=== PATIENT | male | born 1970 | race Two or more races ===

== ENCOUNTER 2024-08-02 03:33 | Emergency (ER) | payer MEDICAID, SELFPAY ==
[2024-08-02 03:35] VITALS: BMI 29.7
[2024-08-02 03:42] VITALS: BP 164/78; PULSE 82; RESP 17; TEMP 36.4; O2SAT 98
--- NOTE | 2024-08-02 04:33 | EDRME_ITS ---
Rapid Medical Screening Exam [facility] Arrival date/time: 08/02/24 03:33 54M with an extensive history including asthma, DM, and CAD s/p CABG on Plavix presents to ED with dysuria/hematuria and R shoulder pain for 1 week. Patient was given muscle relaxers at PCP that didn't help much. Patient also has a cough. Chief Complaint: General Adult/Misc Complain Vital signs: Vital Signs Temperature 97.6 F 08/02/24 03:42 Pulse Rate 82 08/02/24 03:42 Respiratory Rate 17 08/02/24 03:42 Blood Pressure 164/78 H 08/02/24 03:42 Pulse Oximetry (%) 98 08/02/24 03:42 Oxygen Delivery Method Room Air 08/02/24 03:42
--- NOTE | 2024-08-02 04:47 | PC.NURSE ---
PT LEFT AFTER TALKING TO PROVIDER.
== END 2024-08-02 04:48 | disposition left against medical advice (07) ==
PROVIDERS: Emergency Provider Emergency Medicine
DX: M25.511 Pain in right shoulder (principal); R05.9 Cough, unspecified; Z53.29 Procedure and treatment not carried out because of patient's decision for other reasons
CPT/HCPCS: 99281

== ENCOUNTER 2025-01-03 07:31 | Emergency (ER) | payer OTHER, MEDICAID, SELFPAY ==
[2025-01-03 07:48] VITALS: BP 138/77; PULSE 76; RESP 18; TEMP 36.8; O2SAT 97; BMI 31.1
--- NOTE | 2025-01-03 08:21 | PD.EDURI ---
Upper Respiratory Inf. RME/HPI General Chief Complaint: Flu Like Symptoms Stated Complaint: COUGH, HEADACHE Time Seen by Provider: 01/03/25 07:40 Arrival date/time: 01/03/25 07:31 This is a 64-year-old male that comes in with complaints of cough, headache, and sore throat for the past week. Patient states that he has children that have influenza also pneumonia. Patient has a history of hyperlipidemia, diabetes, high blood pressure, and BPH. Related Data Home Medications ?Medication ?Instructions ?Recorded ?Confirmed atorvastatin 40 mg tablet 40 mg PO QDAY 07/14/19 05/14/24 clopidogrel 75 mg tablet 75 mg PO QDAY 11/21/19 05/14/24 albuterol sulfate 90 mcg/actuation 2 puff inhalation Q6HR PRN wheezing 06/28/20 05/14/24 aerosol inhaler (ProAir HFA) allopurinol 100 mg tablet 100 mg PO DAILY 12/31/21 05/14/24 lisinopril 5 mg tablet 5 mg PO DAILY 12/31/21 05/14/24 cholecalciferol (vitamin D3) 1,250 1 cap PO QWEEK 01/04/22 05/14/24 mcg (50,000 unit) capsule insulin glargine 100 unit/mL (3 30 unit subcut BID 01/04/22 05/14/24 mL) subcutaneous pen (Basaglar KwikPen U-100 Insulin) tizanidine 2 mg tablet 2 mg PO HS PRN diverticulitis 01/04/22 05/14/24 triamcinolone acetonide 0.1 % 1 applic topical PRN PRN Edema 01/04/22 05/14/24 topical cream gemfibrozil 600 mg tablet 600 tab PO Q OTHER DAY 04/21/22 05/14/24 insulin lispro 100 unit/mL See Rx Instructions .Route .COMPLEX 09/26/22 05/14/24 subcutaneous pen (Admelog SoloStar U-100 Insulin lispro) levofloxacin 500 mg tablet 500 mg PO QDAY 07/11/23 05/14/24 silodosin 8 mg capsule (Rapaflo) 8 mg PO QDAY 07/11/23 05/14/24 tamsulosin 0.4 mg capsule 0.4 mg PO QDAY 07/11/23 05/14/24 Previous Rx's ?Medication ?Instructions ?Recorded diphenhydramine HCl 25 mg capsule 25 mg PO TID PRN itching #30 caps 09/15/22 (Benadryl) famotidine 40 mg tablet 40 mg PO QDAY #10 tabs 09/15/22 metronidazole 500 mg tablet 500 mg PO BID #14 tabs 09/28/22 benzonatate 200 mg capsule 200 mg PO BID PRN cough #20 caps 12/20/22 hydrocodone 5 mg-acetaminophen 325 1 tab PO BID PRN pain #5 tabs 12/20/22 mg tablet ondansetron 4 mg disintegrating 4 mg PO Q8H PRN nausea and 04/12/24 tablet vomiting #10 tabs flash glucose sensor (FreeStyle #2 ea 05/26/24 Renu 2 Sensor kit) azithromycin 250 mg tablet See Rx Instructions PO .COMPLEX #6 01/03/25 tabs promethazine-DM 6.25 mg-15 mg/5 mL 5 ml PO Q6H PRN cough #240 mL 01/03/25 oral syrup Allergies Allergy/AdvReac Type Severity Reaction Status Date / Time No Known Allergies Allergy Verified 01/03/25 07:34 Course Orders Category Date Time Status Bedside COVID-19 Antigen Test NOW Care 01/03/25 08:08 Active Bedside Influenza A&B Antigen Test NOW Care 01/03/25 08:08 Completed Dexamethasone Inj [Decadron Inj] Med 01/03/25 08:10 Discontinued 10 mg PO X1 ONE Ibuprofen Tab [Motrin Tab] Med 01/03/25 08:08 Discontinued 800 mg PO X1 ONE Promethazine/Dextromethorph [Phenergan Dm Syrup] Med 01/03/25 08:08 Discontinued 5 ml PO X1 ONE Vital Signs Vital signs: Vital Signs Temperature 98.2 F 01/03/25 07:48 Pulse Rate 76 01/03/25 07:48 Respiratory Rate 18 01/03/25 07:48 Blood Pressure 138/77 H 01/03/25 07:48 Pulse Oximetry (%) 97 01/03/25 07:48 Upper Respiratory Infection MDM Narrative MDM Narrative:: Patient's COVID and flu were negative. Patient states the cough is better with the cough medicine. Patient states that he still coughing and still feels ill. Patient states he knows his body and knows when he is about to get pneumonia. Patient states he usually treated with antibiotics. Patient very insistent on antibiotic therapy. I did explain to patient at length that felt this is likely a viral illness. Patient verbalizes understanding. Will send patient home with a Z-Alessandro. Patient reports that he has an inhaler at home that he uses. I will also send patient home with ibuprofen and cough medicine. I explained to patient to follow-up with his primary provider in 1 to 2 days. Come back to the emergency room if symptoms change or worsen. Medications / Prescriptions Medication administrations:: Medication Administration History Discontinued Medications Dexamethasone Sodium Phosphate (Dexamethasone Sod Phos Inj 10 Mg/Ml Vial) 10 mg PO X1 ONE Stop: 01/03/25 08:11 Last Admin: 01/03/25 08:27 Dose: 10 mg Documented By: KEYON Comments: given po Ibuprofen (Ibuprofen Tab 400 Mg Tablet) 800 mg PO X1 ONE Stop: 01/03/25 08:09 Last Admin: 01/03/25 08:27 Dose: 800 mg Documented By: KEYON Promethazine HCl/Dextromethorphan (Promethazine/Dm Syrup 5 Ml Dose) 5 ml PO X1 ONE; Protocol Stop: 01/03/25 08:09 Last Admin: 01/03/25 08:27 Dose: 5 ml Documented By: KEYON Discharge Plan Plan Patient Disposition: HOME (Self Care) Patient condition on transfer: Stable Prescriptions/Referrals Prescriptions/Med Rec: New azithromycin 250 mg tablet See Rx Instructions .ROUTE .COMPLEX Qty: 6 0RF Rx Instructions: For 250 mg dose pack: take 500 mg today (day 1), then 250 mg for 4 days (days 2-5) promethazine-DM 6.25-15 mg/5 mL syrup 5 ml PO Q6H PRN (Reason: cough) Qty: 240 0RF No Action tamsulosin 0.4 mg capsule 0.4 mg PO QDAY levofloxacin 500 mg tablet 500 mg PO QDAY silodosin [Rapaflo] 8 mg capsule 8 mg PO QDAY Rx Instructions: must administer with a meal/food (DME) FreeStyle Renu 2 Sensor Kit See Rx Instructions .Route Qty: 2 3RF Rx Instructions: As directed to monitor blood sugar atorvastatin 40 mg Tablet 40 mg PO QDAY albuterol sulfate [ProAir HFA] 90 mcg/actuation HFA aerosol inhaler 2 puff inhalation Q6HR PRN (Reason: wheezing ) tizanidine 2 mg tablet 2 mg PO HS PRN (Reason: diverticulitis) Patient Comments: TAKE 1 TO 2 TABLETS BY MOUTH AT BEDTIME NEEDED FOR MUSCLE SPASM MAY CAUSE DROWSINESS, DIZZINESS triamcinolone acetonide 0.1 % cream 1 applic topical PRN PRN (Reason: Edema) Patient Comments: APPLY CREAM EXTERNALLY TO AFFECTED AREA TWICE DAILY FOR 15 DAYS Rx Instructions: APPLY CREAM EXTERNALLY TO AFFECTED AREA TWICE DAILY FOR 15 DAYS cholecalciferol (vitamin D3) 1,250 mcg (50,000 unit) capsule 1 cap PO QWEEK Patient Comments: TAKE 1 CAPSULE BY MOUTH ONCE A WEEK Rx Instructions: weekly every Saturday insulin glargine [Basaglar KwikPen U-100 Insulin] 100 unit/mL (3 mL) insulin pen 30 unit SUBCUT BID Patient Comments: INJECT 55 UNITS SUBCUTANEOUSLY TWICE DAILY clopidogrel 75 mg tablet 75 mg PO QDAY Patient Comments: TAKE 1 TABLET BY MOUTH ONCE DAILY lisinopril 5 mg tablet 5 mg PO DAILY Patient Comments: TAKE 1 TABLET BY MOUTH ONCE DAILY allopurinol 100 mg tablet 100 mg PO DAILY Patient Comments: TAKE 1 TABLET BY MOUTH ONCE DAILY FOR 30 DAYS famotidine 40 mg tablet 40 mg PO QDAY Qty: 10 0RF diphenhydramine HCl [Benadryl] 25 mg capsule 25 mg PO TID PRN (Reason: itching) Qty: 30 0RF insulin lispro [Admelog SoloStar U-100 Insulin] 100 unit/mL insulin pen See Rx Instructions .ROUTE .COMPLEX Patient Comments: INJECT 20 UNITS SUBCUTANEOUSLY THREE TIMES DAILY Rx Instructions: PER SLIDING SCALE metronidazole 500 mg tablet 500 mg PO BID Qty: 14 0RF ondansetron 4 mg tablet,disintegrating 4 mg PO Q8H PRN (Reason: nausea and vomiting) Qty: 10 0RF gemfibrozil 600 mg tablet 600 tab PO Q OTHER DAY Patient Comments: TAKE 1 TABLET BY MOUTH ONCE EVERY OTHER DAY STOP FENOFIBRATE benzonatate 200 mg capsule 200 mg PO BID PRN (Reason: cough) Qty: 20 0RF hydrocodone-acetaminophen 5-325 mg tablet 1 tab PO BID MDD 2 tabs PRN (Reason: pain) Qty: 5 0RF Referrals: Zaheer Oleary MD [Primary Care Provider] - In 1 week Problem List Clinical Impression: Bronchitis, Cough Patient/Caregiver Discharge Instructions Discharge Activity: activity as tolerated Education Materials: ED Upper Resp Infec Abx Tx Additional Instructions: Follow up with primary provider in 1-2 days. Come back to ED if symptoms change or worsen Print Language: Welsh Stand Alone Forms: Treasure Award Info., Patient Portal Info Letter PA/PANEL [employer] UP WORKER Supervising Physician PA/P[employer] WORKER Supervising Physician: slava
[2025-01-03] MEDS: IBUPROFEN TAB 400 MG TABLET 800 MG PO (08:27)
[2025-01-03] MEDS: DEXAMETHASONE SOD PHOS INJ 10 MG/ML VIAL PO (08:27)
[2025-01-03] MEDS: PROMETHAZINE/DM SYRUP 5 ML DOSE PO (08:27)
== END 2025-01-03 10:56 | disposition home or self-care (01) ==
PROVIDERS: Emergency Provider Emergency Medicine; PCP Family Medicine
DX: J40 Bronchitis, not specified as acute or chronic (principal)
CPT/HCPCS: 87400; 87811; 99283; J1100; A9270

== ENCOUNTER 2025-03-06 04:24 | Emergency (ER) | payer OTHER, MEDICAID, SELFPAY ==
[2025-03-06 04:25] VITALS: BMI 31.3
[2025-03-06 04:35] VITALS: BP 143/79; PULSE 86; RESP 18; TEMP 36.6; O2SAT 96
--- NOTE | 2025-03-06 04:57 | EDRME_ITS ---
Rapid Medical Screening Exam [facility] Arrival date/time: 03/06/25 04:24 54M with an extensive history including asthma, DM, and CAD s/p CABG presents to ED with 1 week of R flank pain and dysuria. Chief Complaint: Urogenital-Male Vital signs: Vital Signs Temperature 97.9 F 03/06/25 04:35 Pulse Rate 86 03/06/25 04:35 Respiratory Rate 18 03/06/25 04:35 Blood Pressure 143/79 H 03/06/25 04:35 Pulse Oximetry (%) 96 03/06/25 04:35 Oxygen Delivery Method Room Air 03/06/25 04:35
--- NOTE | 2025-03-06 04:57 | XR_ITS ---
Examination: CT abdomen and pelvis without contrast. Coronal 3-D reconstructions. Sagittal 2-D reconstructions. Date and time of exam:March 06 25, 0517 hours Comparison May 10, 2024 INDICATIONS: Onset flank pain beginning one week ago, history kidney stones May 10, 2024 CTDI: vol (mGy): 8.84. DLP: (mGycm): 569. Technique: Axial images of the abdomen have been obtained, 3 mm slice thickness Intravenous contrast material has not been administered. Low dose protocols were performed. One or more of the following dose reduction techniques were used; automated exposure control, adjustment of the mA and/or KV according to patient size, use of iterative reconstruction technique. Findings: Diffuse fatty infiltration throughout the liver, no focal liver or splenic lesions. Absent gallbladder. No pancreatic or adrenal mass 6 mm 1 mm left renal calculi 5 mm lower pole right renal calculus Mild right hydronephrosis, 6 mm right ureteropelvic junction calculus 28 mm fat-containing umbilical hernia Normal appendix No bowel obstruction Sigmoid colon sutures Thickened urinary bladder wall with pericystic inflammatory change No prostatomegaly IMPRESSION: Mild right hydronephrosis, 6 mm right ureteropelvic junction calculus Severe cystitis pattern
--- NOTE | 2025-03-06 05:45 | PRELIM_ITS ---
CT scan of the abdomen and pelvis without intravenous contrast (axial sections with sagittal and coronal reformats) March 06, 2025 0517 hours Clinical History: R Flank pain Comparison: May 10, 2024. Findings: There are multiple nodules in the bilateral lung bases , largest measuring 5 mm in the right (axial image 7/312). Fatty infiltration of the liver is noted. The gallbladder is surgically absent. There is a 6 mm obstructing calculus at the right ureteropelvic junction (axial images 123/312) causing mild hydronephrosis and periureteric/perinephric fat stranding. Nonobstructing bilateral renal calculi are seen. The pancreas, spleen and adrenals are unremarkable on this noncontrast study. A moderate amount of fecal material is present in the colon. No evidence of bowel obstruction. The appendix is within normal limits. There is no mesenteric or retroperitoneal adenopathy. The urinary bladder is incompletely distended at the time of the examination and appears mildly thick walled. There is no free fluid or free air. Degenerative changes are identified in the spine. A small fat-containing umbilical hernia is present. Impression: A 6 mm obstructing calculus at the right ureteropelvic junction causing mild hydronephrosis. Incompletely distended and mildly thick-walled urinary bladder. In the appropriate clinical setting, the possibility of cystitis cannot be excluded. Other findings as described above. Report Electronically Signed By: Ilya Franco 03/06/2025 5:44:25 AM [EST]
[2025-03-06 06:27] LABS: Basophils # (Auto) 0.0 Thou/mm3 (0.0-0.2); Basophils % (Auto) 0 % (0-2.5); Eosinophils # (Auto) 0.3 Thou/mm3 (0.0-0.5); Eosinophils % (Auto) 3 % (0-10); Hematocrit 43.3 % (41.0-53.0); Hemoglobin 14.9 g/dL (13.5-16.0); Immature Granulocytes Auto 0.07 Thou/mm3 (0.00-0.00); Lymphocytes # (Auto) 1.7 Thou/mm3 (1.0-4.8); Lymphocytes % (Auto) 18 % (10-50); Mean Corpuscular HGB Conc 34.4 g/dl (31.0-37.0); Mean Corpuscular Hemoglobin 30.8 pg (25.0-35.0); Mean Corpuscular Volume 90 fL (80-100); Monocytes # (Auto) 0.7 Thou/mm3 (0.0-0.8); Monocytes % (Auto) 8 % (0-12); Neutrophils # (Auto) 6.5 Thou/mm3 (1.8-7.7); Neutrophils % (Auto) 70 % (37-80); Nucleated Red Blood Cell # 0.00 Thou/mm3 (0.00-0.00); Nucleated Red Blood Cell % 0 /100 WBC (0); Platelet Count 181 Thou/mm3 (140-440); RDW Standard Deviation 41.3 fL (35.1-43.9); Red Blood Count 4.84 Miln/mm3 (4.50-5.90); White Blood Count 9.4 Thou/mm3 (3.8-10.6)
[2025-03-06 06:48] LABS: Alanine Aminotransferase 60 U/L (10-49); Albumin, Serum 4.3 gm/dL (3.5-5.0); Albumin/Globulin Ratio 1.8 (1.2-2.2); Alkaline Phosphatase 113 U/L (46-116); Anion Gap 11 (7-16); Aspartate Amino Transferase 37 U/L (0-34); BUN/Creatinine Ratio 13 Ratio (12-20); Bilirubin,Total 1.2 mg/dL (0.3-1.2); Blood Urea Nitrogen 16 mg/dL (9-23); Calcium 8.8 mg/dL (8.3-10.6); Calcium (Corrected) 8.8 mg/dL (8.5-10.1); Carbon Dioxide 19.5 mMol/L (20.0-31.0); Chloride 109 mMol/L (98-107); Creatinine (Component) 1.2 mg/dL (0.6-1.3); Estimated Creatinine Clearance 74.7 mL/min (>60); Globulin 2.4 gm/dL (2.3-3.5); Glucose 224 mg/dL (74-106); Lipase 46 U/L (12-53); Osmolality,Calculated 285 (275-295); Potassium 4.2 mMol/L (3.4-5.1); Sodium 139 mMol/L (136-145); Total Protein 6.7 gm/dL (5.7-8.2); eGFR > 60 See Note
[2025-03-06 06:51] LABS: Collection Type, Urine Clean Catch; Squamous Epithelial Cell,Urine 0 /hpf (0-5)
[2025-03-06 07:01] VITALS: BP 136/95; PULSE 78; RESP 19; TEMP 36.6; O2SAT 97
[2025-03-06 07:16] LABS: Bilirubin,Urine Negative (Negative); Blood,Urine 1+ (Negative); Color,Urine Yellow (Lt Yel-Yel); Glucose, Urine 1+ (Negative); Ketones,Urine Negative (Negative); Leukocyte Esterase,Urine Positive (Negative); Nitrite,Urine Negative (Negative); PH,Urine 6.0 (5.0-7.0); Protein,Urine 1+ (Neg - Trace); RBC,Urine 27 /hpf (0-3); Specific Gravity,Urine 1.017 (1.001-1.035); Transitional Epi Cells,Urine 1 /hpf (0-5); Urobilinogen,Urine Negative mg/dL (0.0-1.0); WBC,Urine 1650 /hpf (0-5)
[2025-03-06 07:27] LABS: Clarity,Urine Turbid (Clear/Hazy)
--- NOTE | 2025-03-06 07:59 | XR_ITS ---
Examination: AP chest single view TECHNIQUE: AP portable semiupright chest single view Date and time: March 06, 2025, 0821 hours Comparison December 20, 2022 INDICATION: Coughing and shortness of breath chest pain beginning today. FINDINGS: Mild prominence left ventricle. CABG. No pneumonia or pulmonary edema. IMPRESSION: No active disease.
[2025-03-06 08:14] VITALS: BP 157/87; PULSE 72; RESP 18; TEMP 36.6; O2SAT 98
--- NOTE | 2025-03-06 08:14 | PD.EDMALE ---
ED Male Genitalurinary RME/HPI General Chief complaint: Urogenital-Male Stated complaint: RT FLANK PAIN Time Seen by Provider: 03/06/25 08:20 Arrival date/time: 03/06/25 04:24 Limitations: no limitations RME / HPI RME / HPI Narrative: 03/06/25 04:24 54M with an extensive history including asthma, DM, and CAD s/p CABG presents to ED with 1 week of R flank pain and dysuria. DR. JUAN MAIN ED EVALUATION: 54-year-old male with past medical history of insulin-dependent diabetes mellitus complicated by gastroparesis, coronary artery disease on Plavix s/p 5-vessel CABG, recurrent UTIs, nephrolithiasis, left foot osteomyelitis s/p amputation of the left fourth toe, and right below-knee amputation presents to the Emergency Department with complaint of right flank pain radiating to the lower back and associated dysuria. He reports a history of frequent UTIs and is currently experiencing symptoms consistent with another episode. Denies tobacco, alcohol, or drug use. Related Data Home Medications ?Medication ?Instructions ?Recorded ?Confirmed atorvastatin 40 mg tablet 40 mg PO QDAY 07/14/19 05/14/24 clopidogrel 75 mg tablet 75 mg PO QDAY 11/21/19 05/14/24 albuterol sulfate 90 mcg/actuation 2 puff inhalation Q6HR PRN wheezing 06/28/20 05/14/24 aerosol inhaler (ProAir HFA) allopurinol 100 mg tablet 100 mg PO DAILY 12/31/21 05/14/24 lisinopril 5 mg tablet 5 mg PO DAILY 12/31/21 05/14/24 cholecalciferol (vitamin D3) 1,250 1 cap PO QWEEK 01/04/22 05/14/24 mcg (50,000 unit) capsule insulin glargine 100 unit/mL (3 30 unit subcut BID 01/04/22 05/14/24 mL) subcutaneous pen (Basaglar KwikPen U-100 Insulin) tizanidine 2 mg tablet 2 mg PO HS PRN diverticulitis 01/04/22 05/14/24 triamcinolone acetonide 0.1 % 1 applic topical PRN PRN Edema 01/04/22 05/14/24 topical cream gemfibrozil 600 mg tablet 600 tab PO Q OTHER DAY 04/21/22 05/14/24 insulin lispro 100 unit/mL See Rx Instructions .Route .COMPLEX 09/26/22 05/14/24 subcutaneous pen (Admelog SoloStar U-100 Insulin lispro) levofloxacin 500 mg tablet 500 mg PO QDAY 07/11/23 05/14/24 silodosin 8 mg capsule (Rapaflo) 8 mg PO QDAY 07/11/23 05/14/24 tamsulosin 0.4 mg capsule 0.4 mg PO QDAY 07/11/23 05/14/24 Previous Rx's ?Medication ?Instructions ?Recorded diphenhydramine HCl 25 mg capsule 25 mg PO TID PRN itching #30 caps 09/15/22 (Benadryl) famotidine 40 mg tablet 40 mg PO QDAY #10 tabs 09/15/22 metronidazole 500 mg tablet 500 mg PO BID #14 tabs 09/28/22 benzonatate 200 mg capsule 200 mg PO BID PRN cough #20 caps 12/20/22 hydrocodone 5 mg-acetaminophen 325 1 tab PO BID PRN pain #5 tabs 12/20/22 mg tablet ondansetron 4 mg disintegrating 4 mg PO Q8H PRN nausea and 04/12/24 tablet vomiting #10 tabs flash glucose sensor (FreeStyle #2 ea 05/26/24 Renu 2 Sensor kit) azithromycin 250 mg tablet See Rx Instructions PO .COMPLEX #6 01/03/25 tabs promethazine-DM 6.25 mg-15 mg/5 mL 5 ml PO Q6H PRN cough #240 mL 01/03/25 oral syrup ciprofloxacin HCl 500 mg tablet 500 mg PO BID uti #20 tabs 03/06/25 hydrocodone 5 mg-acetaminophen 325 1 tab PO Q6H PRN pain #14 tabs 03/06/25 mg tablet Allergies Allergy/AdvReac Type Severity Reaction Status Date / Time No Known Allergies Allergy Verified 01/03/25 07:34 Review of Systems Review of Systems Systems Reviewed: All systems reviewed, normal except as documented Past Medical History Past Medical History CARDIAC: Positive Cardiac Disorders, Myocardial Infarction, Coronary Artery Disease, Atherosclerotic Heart Disease, Peripheral Vascular Disease, Hypercholesterolemia, Hypertension and Hypotension RESPIRATORY: Positive Asthma GASTROINTESTINAL: Positive Gastrointestinal Disorders, Pancreatitis, Gall Bladder Disease, Diverticulitis, Diverticulosis and Crohn's Disease GENITOURINARY: Positive Genitourinary Disorders, Kidney Stones and Benign Prostatic Hyperplasia MUSCULOSKELETAL: Positive Musculoskeletal Disorders, Arthritis, Degenerative Disk Disease and Osteomyelitis ENDOCRINE: Positive Endocrine Disorders and Diabetes Mellitus Type 2 PSYCHO/SOCIAL: Positive Depression OTHER HISTORY: Positive Hospitalization, Blood Transfusions and Chicken Pox Family History FAMILY HISTORY: Positive Family Respiratory Disorders, Family Cardiac Disorders, Family Gastrointestinal Problems, Family Cancer and Family Surgery Surgical History SURGICAL: Positive Open Heart Surgery, Coronary Artery Bypass Graft, Coronary Stent, Angiogram, Eye Surgery, Abdominal Surgery, Bowel Surgery and Amputation Social History SMOKING STATUS: Never smoker SECOND HAND EXPOSURE: No SUBSTANCE USE: does not use ALCOHOL: Never ED Exam General Limitations: Present no limitations General appearance: Present alert and in no apparent distress Head Head exam: Present atraumatic, normocephalic and normal inspection Eye Eye exam: Present normal appearance, PERRL and EOMI ENT ENT exam: Present normal exam, normal oropharynx and mucous membranes moist Neck Neck exam: Present normal inspection, full ROM and trachea midline Chest Chest inspection: Present normal inspection and symmetric chest wall rise Respiratory Respiratory exam: Present normal lung sounds bilaterally Cardiovascular Cardiovascular exam: Present regular rate, normal rhythm and normal heart sounds Abdominal Exam Abdominal exam: Present soft and normal bowel sounds Extremities Exam Extremities exam: Present full ROM and other (Right BKA) Back Exam Back exam: Present full ROM and CVA tenderness (R) (+/-); Absent CVA tenderness (L) Neurological Exam Neurological exam: Present alert, oriented X3 and CN II-XII intact Psychiatric Psychiatric exam: Present normal affect and normal mood Skin Skin exam: Present warm, dry, intact and normal color Course Quality Measures none Orders Category Date Time Status Double Cut Off Saw Operator NOW Care 03/06/25 07:59 Completed Continuous Pulse Oximetry NOW Care 03/06/25 07:59 Completed Insert IV NOW Care 03/06/25 07:[address] abdomen pelvis wo con Stat Exams 03/06/25 04:57 Completed XR chest 1V portable Stat Exams 03/06/25 07:59 Completed Blood Culture (Lab) Stat Lab 03/06/25 09:22 Received CBC Stat Lab 03/06/25 06:12 Completed CMP [Comprehensive Metabolic Panel] Stat Lab 03/06/25 06:12 Completed Lactic Acid [Lactate (Lactic Acid)] Stat Lab 03/06/25 09:32 Completed Lipase Stat Lab 03/06/25 06:12 Completed UA [Urinalysis] Stat Lab 03/06/25 06:20 Completed Urine Culture Stat Lab 03/06/25 06:20 Received HYDROcodone*/APAP 5/325 [[place]enton 5/325] Med 03/06/25 04:57 Discontinued 1 tab PO X1 ONE Morphine Inj Med 03/06/25 08:24 Discontinued 4 mg IVP X1 ONE Ondansetron Inj [Zofran Inj] Med 03/06/25 08:24 Discontinued 4 mg IVP X1 ONE Sodium Chloride 0.9% 1000 ml [Ns] 1,000 ml Med 03/06/25 07:59 Discontinued IV 999 mls/hr cefTRIAXone [Rocephin] 2 gm Med 03/06/25 07:59 Discontinued SODIUM CHLORIDE 0.9% (Popper) [Ns 0.9% (P)] 50 ml IV X1 Vital Signs Vital signs: Vital Signs Temperature 97.9 F 03/06/25 04:35 Pulse Rate 86 03/06/25 04:35 Respiratory Rate 18 03/06/25 04:35 Blood Pressure 143/79 H 03/06/25 04:35 Pulse Oximetry (%) 96 03/06/25 04:35 Oxygen Delivery Method Room Air 03/06/25 04:35 Urogenital - Male MDM Narrative MDM Narrative:: I, Leslie Collins am scribing for and in the presence of Dr. Juan. Patient data External records reviewed:: [facility] previous records Clinical information provided by:: patient Social determinants that could affect healthcare access:: none Patient has the following chronic illnesses:: Insulin-dependent diabetes mellitus complicated by gastroparesis, coronary artery disease on Plavix s/p 5-vessel CABG, recurrent UTIs, nephrolithiasis, left foot osteomyelitis s/p amputation of the left fourth toe, and right below-knee amputation. Frequent UTIs. How is presenting disease/condition affected by chronic disease/condition?: exacerbated by Evaluation data The following diagnostics were reviewed and interpreted by me:: lab results and radiology exam(s) Lab and/or radiology exams considered but not ordered:: none Interpretation Summary: Procedure(s): CT abdomen pelvis wo con Accession Number(s): [id number] cc: Zaheer Oleary MD; Mayito Vargas MD; Joss Arias PA-C~ Examination: CT abdomen and pelvis without contrast. Coronal 3-D reconstructions. Sagittal 2-D reconstructions. Date and time of exam:March 06 25, 0517 hours Comparison May 10, 2024 INDICATIONS: Onset flank pain beginning one week ago, history kidney stones May 10, 2024 CTDI: vol (mGy): 8.84. DLP: (mGycm): 569. Technique: Axial images of the abdomen have been obtained, 3 mm slice thickness Intravenous contrast material has not been administered. Low dose protocols were performed. One or more of the following dose reduction techniques were used; automated exposure control, adjustment of the mA and/or KV according to patient size, use of iterative reconstruction technique. Findings: Diffuse fatty infiltration throughout the liver, no focal liver or splenic lesions. Absent gallbladder. No pancreatic or adrenal mass 6 mm 1 mm left renal calculi 5 mm lower pole right renal calculus Mild right hydronephrosis, 6 mm right ureteropelvic junction calculus 28 mm fat-containing umbilical hernia Normal appendix No bowel obstruction Sigmoid colon sutures Thickened urinary bladder wall with pericystic inflammatory change No prostatomegaly IMPRESSION: Mild right hydronephrosis, 6 mm right ureteropelvic junction calculus Severe cystitis pattern Dictated By: Mayito Vargas MD Procedure(s): XR chest 1V portable Accession Number(s): [id number] cc: Jamil Juan MD; Zaheer Oleary MD; Mayito Vargas MD~ Examination: AP chest single view TECHNIQUE: AP portable semiupright chest single view Date and time: March 06, 2025, 0821 hours Comparison December 20, 2022 INDICATION: Coughing and shortness of breath chest pain beginning today. FINDINGS: Mild prominence left ventricle. CABG. No pneumonia or pulmonary edema. IMPRESSION: No active disease. Dictated By: Mayito Vargas MD Medications / Prescriptions Medications or Prescriptions considered but not ordered:: none Medication administrations:: Medication Administration History Discontinued Medications Hydrocodone Bitart/Acetaminophen (Hydrocodone/Apap 5/325 Tablet) 1 tab PO X1 ONE Stop: 03/06/25 04:58 Last Admin: 03/06/25 08:36 Dose: 1 tab Documented By: KEYON Sodium Chloride (Ns) 1,000 mls @ 999 mls/hr IV .Q1H1M ONE Stop: 03/06/25 08:59 Last Infusion: 03/06/25 10:20 Dose: Infused Documented By: Admin: 03/06/25 08:54 Dose: 999 mls/hr Documented By: KEYON Ceftriaxone Sodium 2 gm/ (Sodium Chloride) 50 mls @ 100 mls/hr IV X1 ONE Stop: 03/06/25 08:28 Last Infusion: 03/06/25 10:18 Dose: Infused Documented By: Admin: 03/06/25 08:54 Dose: 100 mls/hr Documented By: KEYON Morphine Sulfate (Morphine Sulf Inj 10 Mg/Ml Vial) 4 mg IVP X1 ONE Stop: 03/06/25 08:25 Last Admin: 03/06/25 09:05 Dose: 4 mg Documented By: TJ Ondansetron HCl (Ondansetron Inj 2 Mg/Ml Inj 2 Ml) 4 mg IVP X1 ONE; Protocol Stop: 03/06/25 08:25 Last Admin: 03/06/25 09:00 Dose: 4 mg Documented By: TJ see above Consultations Consultation(s) initiated? (list below): No Diagnosis Urogenital Male Differential Diagnosis: other (pyelonephritis, obstructive uropathy due to nephrolithiasis, prostatitis) Most likely diagnosis given after review of the tests above:: 6 mm right ureteropelvic junction calculus Mild right hydronephrosis Admission Indicated Admission indicated?: not indicated Admission Request Was there a request for admission?: No Disposition Plan Disposition Plan: Discharge Discharge Attestation Discharge Attestation: The patient and all family members were given an opportunity to ask questions and understood the discharge instructions. Discharge instructions specifically effects, indications for sooner follow up or return to the emergency department, and the expected course of current diagnosis. Patient condition: Stable Discharge Plan Plan Patient Disposition: HOME (Self Care) Patient condition on transfer: Stable Prescriptions/Referrals Prescriptions/Med Rec: New ciprofloxacin HCl 500 mg tablet 500 mg PO BID MDD 2 Qty: 20 0RF hydrocodone-acetaminophen 5-325 mg tablet 1 tab PO Q6H MDD 4 PRN (Reason: pain) Qty: 14 0RF No Action tamsulosin 0.4 mg capsule 0.4 mg PO QDAY levofloxacin 500 mg tablet 500 mg PO QDAY silodosin [Rapaflo] 8 mg capsule 8 mg PO QDAY Rx Instructions: must administer with a meal/food (DME) FreeStyle Renu 2 Sensor Kit See Rx Instructions .Route Qty: 2 3RF Rx Instructions: As directed to monitor blood sugar atorvastatin 40 mg Tablet 40 mg PO QDAY albuterol sulfate [ProAir HFA] 90 mcg/actuation HFA aerosol inhaler 2 puff inhalation Q6HR PRN (Reason: wheezing ) tizanidine 2 mg tablet 2 mg PO HS PRN (Reason: diverticulitis) Patient Comments: TAKE 1 TO 2 TABLETS BY MOUTH AT BEDTIME NEEDED FOR MUSCLE SPASM MAY CAUSE DROWSINESS, DIZZINESS triamcinolone acetonide 0.1 % cream 1 applic topical PRN PRN (Reason: Edema) Patient Comments: APPLY CREAM EXTERNALLY TO AFFECTED AREA TWICE DAILY FOR 15 DAYS Rx Instructions: APPLY CREAM EXTERNALLY TO AFFECTED AREA TWICE DAILY FOR 15 DAYS cholecalciferol (vitamin D3) 1,250 mcg (50,000 unit) capsule 1 cap PO QWEEK Patient Comments: TAKE 1 CAPSULE BY MOUTH ONCE A WEEK Rx Instructions: weekly every Saturday insulin glargine [Basaglar KwikPen U-100 Insulin] 100 unit/mL (3 mL) insulin pen 30 unit SUBCUT BID Patient Comments: INJECT 55 UNITS SUBCUTANEOUSLY TWICE DAILY clopidogrel 75 mg tablet 75 mg PO QDAY Patient Comments: TAKE 1 TABLET BY MOUTH ONCE DAILY lisinopril 5 mg tablet 5 mg PO DAILY Patient Comments: TAKE 1 TABLET BY MOUTH ONCE DAILY allopurinol 100 mg tablet 100 mg PO DAILY Patient Comments: TAKE 1 TABLET BY MOUTH ONCE DAILY FOR 30 DAYS famotidine 40 mg tablet 40 mg PO QDAY Qty: 10 0RF diphenhydramine HCl [Benadryl] 25 mg capsule 25 mg PO TID PRN (Reason: itching) Qty: 30 0RF insulin lispro [Admelog SoloStar U-100 Insulin] 100 unit/mL insulin pen See Rx Instructions .ROUTE .COMPLEX Patient Comments: INJECT 20 UNITS SUBCUTANEOUSLY THREE TIMES DAILY Rx Instructions: PER SLIDING SCALE metronidazole 500 mg tablet 500 mg PO BID Qty: 14 0RF ondansetron 4 mg tablet,disintegrating 4 mg PO Q8H PRN (Reason: nausea and vomiting) Qty: 10 0RF gemfibrozil 600 mg tablet 600 tab PO Q OTHER DAY Patient Comments: TAKE 1 TABLET BY MOUTH ONCE EVERY OTHER DAY STOP FENOFIBRATE benzonatate 200 mg capsule 200 mg PO BID PRN (Reason: cough) Qty: 20 0RF hydrocodone-acetaminophen 5-325 mg tablet 1 tab PO BID MDD 2 tabs PRN (Reason: pain) Qty: 5 0RF azithromycin 250 mg tablet See Rx Instructions .ROUTE .COMPLEX Qty: 6 0RF Rx Instructions: For 250 mg dose pack: take 500 mg today (day 1), then 250 mg for 4 days (days 2-5) promethazine-DM 6.25-15 mg/5 mL syrup 5 ml PO Q6H PRN (Reason: cough) Qty: 240 0RF Referrals: Zaheer Oleary MD [Primary Care Provider] - In 1 week Problem List Clinical Impression: Calculus of right kidney, Hydronephrosis, right Impression comment: 6 mm right ureteropelvic junction calculus Patient/Caregiver Discharge Instructions Diet Instructions: Please drink a lot of fluids. Additional Instructions: Please drink a lot of fluids. Please follow-up with your primary care physician within 2-3 days. Return to the Emergency Department as needed. Print Language: Swedish Stand Alone Forms: Treasure Award Info., Patient Portal Info Letter
[2025-03-06] MEDS: HYDROcodone/APAP 5/325 TABLET 1 TAB PO (08:36)
[2025-03-06] MEDS: SODIUM CHLORIDE 0.9% 1000 ML 1,000 ML 999 ML IV (08:54)
[2025-03-06] MEDS: cefTRIAXone 2 GM in SODIUM CHLORIDE 0.9% (Popper) 50 ML IV (08:54)
[2025-03-06] MEDS: ONDANSETRON INJ 2 MG/ML INJ 2 ML 4 MG IVP (09:00)
[2025-03-06] MEDS: MORPHINE SULF INJ 10 MG/ML VIAL 4 MG IVP (09:05)
[2025-03-06 09:39] LABS: Lactate (Lactic Acid) 1.7 mMol/L (0.4-2.0)
== END 2025-03-06 10:46 | disposition home or self-care (01) ==
PROVIDERS: Physician Assistant; Emergency Provider Family Medicine; PCP Family Medicine
DX: N13.2 Hydronephrosis with renal and ureteral calculous obstruction (principal); R06.02 Shortness of breath; R07.9 Chest pain, unspecified; R05.9 Cough, unspecified
CPT/HCPCS: 36415; 71045; 74176; 80053; 81001; 83605; 83690; 85025; 87040; 87077; 87086; 87186; 96365; 96375; 99283; J0696; J2270; J2405; J7030; J7050; A9270

== ENCOUNTER 2025-05-18 10:15 | Day surgery (SDC) | payer OTHER, MEDICAID, SELFPAY ==
[2025-05-14 16:48] VITALS: BMI 29.8
--- NOTE | 2025-05-17 08:58 | EKG_ITS ---
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: JENNIFER : 1970 Requested By: Celina Wylie Order Number: [id number] Reading MD: Celina Wylie Measurements Intervals [place] Rate: 79 P: 33 NV: 169 QRS: 2 QRSD: 109 T: 139 QT: 350 QTc: 401 Interpretive Statements SINUS RHYTHM POSSIBLE ANTERIOR MYOCARDIAL INFARCTION , OF INDETERMINATE AGE [30 ms Q WAVE IN V3/V4, OR R < 0.2 mV IN V4] INFERIOR MYOCARDIAL INFARCTION , PROBABLY OLD [40+ ms Q WAVE AND/OR ST/T ABNORMALITY IN II/aVF] MODERATE T-WAVE ABNORMALITY, CONSIDER LATERAL ISCHEMIA [-0.1+ mV T WAVE IN I/aVL/V5/V6] Compared to ECG 04/12/2024 05:21:43 T-wave abnormality now present Possible ischemia now present Myocardial infarct finding still present /store/S0/[id number]/ecg/[id number].pdf
[2025-05-17 09:49] LABS: Basophils # (Auto) 0.1 Thou/mm3 (0.0-0.2); Basophils % (Auto) 1 % (0-2.5); Eosinophils # (Auto) 0.5 Thou/mm3 (0.0-0.5); Eosinophils % (Auto) 4 % (0-10); Hematocrit 42.5 % (41.0-53.0); Hemoglobin 14.4 g/dL (13.5-16.0); Immature Granulocytes Auto 0.07 Thou/mm3 (0.00-0.00); Lymphocytes # (Auto) 2.0 Thou/mm3 (1.0-4.8); Lymphocytes % (Auto) 19 % (10-50); Mean Corpuscular HGB Conc 33.9 g/dl (31.0-37.0); Mean Corpuscular Hemoglobin 30.3 pg (25.0-35.0); Mean Corpuscular Volume 89 fL (80-100); Monocytes # (Auto) 0.7 Thou/mm3 (0.0-0.8); Monocytes % (Auto) 7 % (0-12); Neutrophils # (Auto) 7.1 Thou/mm3 (1.8-7.7); Neutrophils % (Auto) 68 % (37-80); Nucleated Red Blood Cell # 0.00 Thou/mm3 (0.00-0.00); Nucleated Red Blood Cell % 0 /100 WBC (0); Platelet Count 241 Thou/mm3 (140-440); RDW Standard Deviation 42.4 fL (35.1-43.9); Red Blood Count 4.76 Miln/mm3 (4.50-5.90); White Blood Count 10.4 Thou/mm3 (3.8-10.6)
[2025-05-17 09:55] LABS: Anion Gap 12 (7-16); BUN/Creatinine Ratio 15 Ratio (12-20); Blood Urea Nitrogen 21 mg/dL (9-23); Calcium 9.6 mg/dL (8.3-10.6); Carbon Dioxide 17.0 mMol/L (20.0-31.0); Chloride 108 mMol/L (98-107); Creatinine (Component) 1.4 mg/dL (0.6-1.3); Estimated Creatinine Clearance 61.3 mL/min (>60); Glucose 242 mg/dL (74-106); Osmolality,Calculated 284 (275-295); Potassium 4.4 mMol/L (3.4-5.1); Sodium 137 mMol/L (136-145); eGFR 59 See Note
[2025-05-17 10:50] LABS: INR 0.9 (0.9-1.3); Partial Thromboplastin Time 25.6 Seconds (22.0-36.0); Prothrombin Time 9.4 Seconds (9.0-12.2)
[2025-05-18] VITALS (12 sets, daily range): BP systolic 126–168; BP diastolic 67–97; PULSE 69–81; RESP 12–15; TEMP 36.6–36.9; O2SAT 96–99; BMI 31.5
[2025-05-18] MEDS: SODIUM CHLORIDE 0.45 % 1,000 ML 100 ML IV (12:15)
--- NOTE | 2025-05-19 13:20 | ESOP_ITS ---
RE: EDWARD EVERETT : 1970 DATE OF OPERATION: 05/18/2025 PROCEDURES PERFORMED: 1. Diagnostic left heart cardiac catheterization, selective coronary angiogram, left ventricular angiogram, CPT and coronary artery bypass graft angiogram, CPT code 55231. 2. Selective cannulation of the left internal mammary artery, left internal mammary artery angiogram, CPT code 49322. 3. Ultrasound guided access, right femoral artery. 4. Iliofemoral angiogram followed by Angio-Seal deployment. 5. Conscious sedation 1 hour duration. 6. Ascending aorta and aortic arch angiogram. DIAGNOSES: Coronary artery disease, status post bypass graft surgery, preoperative cardiac clearance for surgery, abnormal nuclear stress test. HISTORY AND INDICATIONS: Patient is a 54-year-old male with a past medical history of CAD status post bypass graft surgery is recommended to have preop cardiac clearance for surgery, hence nuclear stress test is abnormal, coronary angiogram and cardiac catheterization is recommended to assess the patient is a candidate for coronary intervention and revascularization. DESCRIPTION OF PROCEDURE: Patient brought to cardiac catheterization laboratory where he was given 2 mg Versed, 100 mcg of fentanyl for conscious sedation. Right femoral approach was taken. Right femoral artery was cannulated with micropuncture technique. A 6-Uzbek Glidesheath was introduced, cannulated with Seldinger micropuncture technique, ultrasound guidance was used, 5-Uzbek sheath was introduced. Selective right and left coronary angiogram performed by FR4 and JL4 diagnostic catheters. Selective bypass graft angiogram to right coronary artery was performed by FR4 diagnostic catheter. Left internal mammary artery selectively cannulated using a left internal mammary artery catheter. Left internal mammary artery angiogram was performed. Subsequently iliofemoral angiogram performed, Angio-Seal was deployed successfully. Patient also had aortic root angiogram, ascending aorta and descending thoracic angiogram was performed. Patient tolerated the procedure well, no complication. Cardiac catheterization showed following findings. HEMODYNAMICS: Left ventricular pressure 150/10. Aortic pressure 150/70. No gradient across the aortic valve. Left ventricular EDP is 10 mmHg. Left ventricular angiogram showed evidence of a mild apical hypokinesis, ejection fraction 55-60%. Coronary angiogram showed following findings. Right coronary artery is totally occluded in proximal segment. Vein graft to the right coronary artery is widely patent, excellent distal flow. The distal vessels are small. Left coronary system, left main coronary artery showed evidence of a mild to moderate disease distally. Proximal left anterior descending artery showed evidence of a 80% stenosis. Mid left anterior descending artery showed 90% stenosis. LAD gives is totally occluded after the diagonal branch. Diagonal branch itself shows diffuse disease, about 90% stenosis proximally. Left circumflex artery is large and codominant, there is gives off 1 large obtuse marginal branch. There is a 90% stenosis of obtuse marginal branch of circumflex artery. There is a bypass graft to circumflex artery that is completely occluded. Aortic root angiogram showed evidence of only patent bypass graft to RCA patent, rest of the grafts are occluded. SUMMARY OF FINDINGS: 1. Severe triple vessel coronary artery disease, evidence of widely patent graft to the right coronary artery vein graft and also ALLEN to LAD widely patent. Vein graft to the diagonal branch, vein graft to circumflex are occluded. 2. [place] obtuse marginal of circumflex artery showed 80-90% stenosis, graft occluded. 3. Diffuse disease of the large diagonal branch of left anterior descending artery with multiple proximal lesions of LAD. 4. Well preserved ejection fraction. RECOMMENDATIONS: Patient is doing clinically well. Would recommend the patient to proceed with surgery giving cardiac clearance for surgery but if he has significant ischemia or angina pectoris in future we may consider PCI stent placement in left circumflex artery [place] artery. May also consider PCI of the diagonal branch of LAD. DT: 12:08:38 TT: 13:19:00 Ref: [id number] - TID: [id number] MTDD
== END 2025-05-18 15:51 | disposition home or self-care (01) ==
PROVIDERS: PCP Family Medicine; Referring Provider Internal Medicine Cardiovascular Disease; Visit Provider Internal Medicine Cardiovascular Disease
PROC: (CPT 93459; principal; 2025-05-18 11:30)
DX: I25.118 Atherosclerotic heart disease of native coronary artery with other forms of angina pectoris (principal); Z01.810 Encounter for preprocedural cardiovascular examination; E11.9 Type 2 diabetes mellitus without complications; Z95.1 Presence of aortocoronary bypass graft; I74.3 Embolism and thrombosis of arteries of the lower extremities; R94.31 Abnormal electrocardiogram [ECG] [EKG]; Z79.4 Long term (current) use of insulin; Z79.02 Long term (current) use of antithrombotics/antiplatelets
CPT/HCPCS: 93459; 93567; G0278; 36415; 75625; 80048; 85025; 85610; 85730; 93005; 99152; 99153; A4649; C1725; C1751; C1760; C1769; C1894; J0168; J0461; J1643; J2250; J2312; J2371; J3010; J3490; J7030; Q9967; A9270; J2305

== ENCOUNTER 2025-07-14 05:42 | Emergency (ER) | payer MEDICAID, SELFPAY ==
[2025-07-14 05:44] VITALS: BMI 27.3
[2025-07-14 05:54] VITALS: BP 127/78; PULSE 93; RESP 18; TEMP 36.4; O2SAT 98
--- NOTE | 2025-07-14 06:17 | EDRME_ITS ---
Rapid Medical Screening Exam RME Arrival date/time: 07/14/25 05:42 Chief Complaint: General Adult/Misc Complain Vital signs: Vital Signs Temperature 97.6 F 07/14/25 05:54 Pulse Rate 93 07/14/25 05:54 Respiratory Rate 18 07/14/25 05:54 Blood Pressure 127/78 07/14/25 05:54 Pulse Oximetry (%) 98 07/14/25 05:54 Oxygen Delivery Method Room Air 07/14/25 05:54 RME Narrative: 55-year-old male presents to the ER requesting PICC line removal after having a lithotripsy performed in [facility] about a month ago complicated by a bacterial and fungal infection which required a PICC line placement and patient states his last PICC line treatment was this past Saturday and is requesting removal. Denies any fever, nausea vomiting. I briefly performed a screening evaluation to initiate work-up and expedite care. Complete history, physical exam, and plan of care is deferred to the provider in the main ED. Exam: Head: Normocephalic, atraumatic. Respiratory: Normal effort. No respiratory distress or accessory muscle use. Neuro: Speech normal. Skin: Warm, dry, normal color. Psych: Pleasant. Normal affect. Cooperative. Clinical Impression: Requesting PICC line removal
--- NOTE | 2025-07-14 08:12 | PC.NURSE ---
Pt. states to speak with Rama Wood clinical project manager interior design at [facility] [phone], Rama states that pt. completed his antibiotics on Saturday, Rama states pt.'s insurance fell off and they can no longer come to see the pt. so that is why pt. came to ER to have his midline removed. Rama states because of his insurance they are unable to remove it.
--- NOTE | 2025-07-14 12:51 | PC.NURSE ---
pt called inside and outside of ED lobby; no response at this time
--- NOTE | 2025-07-14 15:25 | PC.NURSE ---
CALLED FOR PT FROM LOBBY/OUTSIDE, NO [email or web address]@ [phone]
--- NOTE | 2025-07-14 19:02 | PC.NURSE ---
PATIENT [id number] IN ED LOBBY OR OUTSIDE OF ED [phone] IN ED LOBBY OR OUTSIDE OF ED
== END 2025-07-14 12:52 | disposition left against medical advice (07) ==
LOC: SERX 07:36
PROVIDERS: Emergency Provider Emergency Medicine; PCP Family Medicine
DX: Z95.828 Presence of other vascular implants and grafts (principal); Z53.29 Procedure and treatment not carried out because of patient's decision for other reasons
CPT/HCPCS: 99281